=== PATIENT | male | born 1990 | race Caucasian/White ===

== ENCOUNTER 2022-06-24 08:52 | Emergency (ER) | payer OTHER ==
[~2022-06-24] VITALS: Ht 177.8 cm; Wt 60.8 kg
[2022-06-24 10:03] LABS: BASO % 0.2 % (0.0-1.0); EOS % 0.2 % (1.0-4.0); LYMPH # 0.6 10*3/uL (1.3-4.4); LYMPH % 10.5 % (27.0-41.0); MEAN CELL VOLUME 90.5 fl (80.0-94.0); MEAN CORPUSCULAR HGB 29.1 pg (27.0-31.0); MEAN CORPUSCULAR HGB CONC 32.1 g/dl (33.0-37.0); MEAN PLATELET VOLUME 10.1 fl (9.6-12.3); MONO # 0.3 10*3/uL (0.1-1.0); MONO % 5.7 % (3.0-9.0); NEUT % 83.1 % (47.0-73.0); PLATELET COUNT AUTOMATED 196 10*3/uL (130-400); RED BLOOD COUNT 4.64 10*6/uL (4.50-5.90); RED CELL DISTRI WIDTH 12.5 % (0-14.5)
[2022-06-24 10:15] LABS: ACT PARTIAL THROMBO TIME 26.2 SECONDS (20.0-32.1)
[2022-06-24 10:19] LABS: ALKALINE PHOSPHATASE 67 U/L (45-117); BUN 13 mg/dl (7-24); CHLORIDE 105 mmol/L (98-107); CREATININE 0.72 mg/dL (0.70-1.30); LIPASE 68 U/L (73-393); POTASSIUM 3.9 mmol/L (3.5-5.1); SGOT/AST 479 IU/L (3-35); SGPT/ALT 147 U/L (12-78); SODIUM 140 mmol/L (136-145); TOTAL PROTEIN 7.4 gm/dL (6.4-8.2)
== END 2022-06-24 14:12 | disposition left against medical advice (07) ==
LOC: ED 08:52
PROVIDERS: Family Medicine
DX: U07.1 COVID-19 (principal)

== ENCOUNTER 2023-06-08 20:41 | Emergency (ER) | payer OTHER ==
[~2023-06-08] VITALS: Ht 177.8 cm; Wt 63.5 kg
[~2023-06-08 20:41] MED LIST: PREDNISONE50 MG PO
[2023-06-08] MEDS ORDERED: AMOX-CLAV 875-1 EACH PO (22:23)
[2023-06-08] MEDS ORDERED: CLINDAMYCIN HC300 MG PO (22:23)
== END 2023-06-08 22:58 | disposition home or self-care (01) ==
LOC: ED 20:41
DX: L04.0 Acute lymphadenitis of face, head and neck (principal); F17.200 Nicotine dependence, unspecified, uncomplicated; F11.10 Opioid abuse, uncomplicated; F10.10 Alcohol abuse, uncomplicated